=== PATIENT | male | born 1950 | race Caucasian/White ===

== ENCOUNTER 2019-02-15 10:42 | Emergency (ER) | payer SELFPAY ==
[~2019-02-15] VITALS: Ht 175.3 cm; Wt 86.5 kg
--- NOTE | 2019-02-15 11:08 | NUR ---
PT TO ROOM FROM LOBBY
--- NOTE | 2019-02-15 11:31 | NUR ---
Dr. Gonzalez aware of patient's most recent blood pressure reading. Continuous blood pressure, SPO2 and cardiac monitoring in place. Call [facility] within reach.
--- NOTE | 2019-02-15 11:53 | NUR ---
Plan of care updated, patient verbalizes understanding.
--- NOTE | 2019-02-15 11:57 | NUR ---
Patient transported for CT scan
[2019-02-15 11:58] LABS: BASOPHILS # (AUTO) 0.04 x10^3/uL (0-0.1); BASOPHILS % (AUTO) 0 % (0-1); EOSINOPHILS # (AUTO) 0.03 x10^3/uL (0-0.4); EOSINOPHILS % (AUTO) 0 % (1-7); LYMPHOCYTES # (AUTO) 0.96 x10^3/uL (1-3.4); LYMPHOCYTES % (AUTO) 10 % (22-44); MD NO; MEAN CORPUSCULAR HEMOGLOBIN 31.3 pg (27.5-34.5); MEAN CORPUSCULAR HGB CONC 33.9 g/dL (33.2-36.2); MEAN CORPUSCULAR VOLUME 92.2 fL (81-97); MEAN PLATELET VOLUME 8.5 fL (7.4-10.4); MONOCYTES # (AUTO) 0.85 x10^3/uL (0.2-0.8); MONOCYTES % (AUTO) 9 % (2-9); NEUTROPHILS # (AUTO) 8.08 x10^3/uL (1.8-6.8); NEUTROPHILS % (AUTO) 81 % (42-75); PLATELET COUNT 226 x10^3/uL (130-400); RED BLOOD COUNT 4.87 x10^6/uL (4.38-5.82); RED CELL DISTRIBUTION WIDTH 12.8 % (9.4-14.8)
[2019-02-15] MEDS ORDERED: SODIUM CHLORIDE FLUSH 10ML SYR IVF ONE (12:00)
[2019-02-15 12:03] LABS: HCT (SEDRATE) 44.9 % (39.2-51.8)
--- NOTE | 2019-02-15 12:07 | NUR ---
Recieved report from JEANA Islas. All questions answered. Assuming care of pt. Pt back to room from imaging on [facility].
[2019-02-15 12:13] LABS: ALANINE AMINOTRANSFERASE 20 U/L (12-78); ALBUMIN 3.3 g/dL (3.4-5.0); ANION GAP 8 mmol/L (5-15); CALCIUM 8.6 mg/dL (8.5-10.1); CHLORIDE 105 mmol/L (98-107); CREATININE 1.19 mg/dL (0.7-1.3)
[2019-02-15 12:18] LABS: ALKALINE PHOSPHATASE 81 U/L (45-117); BILIRUBIN,TOTAL 0.8 mg/dL (0.2-1.0); TOTAL PROTEIN 6.8 g/dL (6.4-8.2); TROPONIN I < 0.015 ng/mL (0.000-0.045)
[2019-02-15] MEDS ORDERED: LABETALOL 20 MG/4 ML IVPush ONE (12:30)
--- NOTE | 2019-02-15 12:57 | NUR ---
Recieved medication per EMAR from pharmacy s/p sending yellow slip. Pt requests to use bathroom. Pt sba to restroom with steady gait and balance. NADN. No obvious defecits observed.
--- NOTE | 2019-02-15 13:00 | NUR ---
Pt back to [facility] from restroom and reconnected to all monitors. NADN. No needs expressed. All safety measures in place. Call light and personal phone within reach.
--- NOTE | 2019-02-15 13:04 | NUR ---
Provided medicaiton per EMAR.
[2019-02-15 14:23] VITALS: BP 209/111
--- NOTE | 2019-02-15 14:25 | NUR ---
Pt resting on gurney connected to all monitors. NADN. No needs expressed. Pt has even chest rise and fall. Call light within reach. All safety measures in place.
--- NOTE | 2019-02-15 15:13 | NUR ---
Report from Manjinder Combs.
--- NOTE | 2019-02-15 15:43 | NUR ---
PT GIVEN D/C PAPERWORK. PT VERBALIZED UNDERSTANDING. PT AMBULATED OUT OF DEPARTMENT WITH STEADY GAIT.
== END 2019-02-15 15:46 | disposition home or self-care (01) ==
LOC: ED 14:07
DX: I10 Essential (primary) hypertension (principal); R73.9 Hyperglycemia, unspecified; F17.200 Nicotine dependence, unspecified, uncomplicated
CPT/HCPCS: 36415; 70450; 71045; 80053; 84484; 85025; 85651; 93005; 96374; 99284; J3490